=== PATIENT | male | born 1950 | race Caucasian/White ===

== ENCOUNTER → 2016-12-24 | Outpatient (CLI) | payer MEDICARE, BC ==
--- NOTE | 2016-12-24 12:55 | EST ---
DATE OF SERVICE: 12/24/2016 AGE: 66Y SEX: M HT: 71" WT: 260 lbs. Protocol Steven: X Other: Cardiolite Stress Stage: 2 Dur. of Exercise: 6:55 *Heart Rate Blood Pressure *Rest: 73 Rest: 139/90 * *Max. Achieved: 144 Maximum BP: 200/102 85% PMHR: 132 100% PMHR: 155 *METS: 6.5 INDICATIONS: Coronary artery disease. MEDICATIONS: Atorvastatin, valsartan, atenolol, amlodipine. Baseline EKG revealed normal sinus rhythm without significant ST-T changes. Patient walked for 6 minutes 55 seconds, achieved a maximum heart rate of 144 beats, which is more than 85% of predicted maximum. He developed fatigue and shortness of breath, but did not have any anginal symptoms. EKG did not reveal any new ST segment changes to indicate ischemia. The patient; however, became quite short of breath with exercise but did not have any angina. By EKG criteria, this is a negative stress test with fair exercise capacity. The nuclear scan results, which are more pertinent, will be reported by the radiologist.
--- NOTE | 2016-12-24 14:13 | NM ---
EXAMINATION TYPE: NM stress cardiolite complete DATE OF EXAM: 12/24/2016 1:02 PM COMPARISON: Previous exam 31 Dec 2010 HISTORY: Coronary artery disease TECHNIQUE: After the intravenous administration of 10.9 mCi Tc 99m Sestamibi - Rest images obtained 45 minutes post injection. The patient exercised using a ASHLEY protocol and 1 minute prior to peak exercise was injected with 27.2 mCi Tc 99m Sestamibi - Stress images obtained 5 minutes post injectio n. FINDINGS: Targeted heart rate was achieved during performance of the study. Review of stress and rest SPECT isrrael ges demonstrates no distinct perfusion abnormality. Gated analysis shows normal wall motion with an estimated left ventricular ejection fraction of 49 %. IMPRESSION: No scintigraphic evidence for reversible ischemia
== END | disposition home or self-care (01) ==
LOC: RADNMMAIN 10:19
PROVIDERS: ATTEND Family Medicine
DX: I25.10 Atherosclerotic heart disease of native coronary artery without angina pectoris (principal)
CPT/HCPCS: 93017; 78452; A9500

== ENCOUNTER → 2019-06-25 | Outpatient (CLI) | payer MEDICARE, BC | END | disposition home or self-care (01) | LOC: CPPFTMAIN 06:52 | PROVIDERS: ATTEND Internal Medicine Critical Care Medicine | DX: J44.9 Chronic obstructive pulmonary disease, unspecified (principal); J84.89 Other specified interstitial pulmonary diseases; J98.4 Other disorders of lung | CPT/HCPCS: 94060; 94726; 94729 ==

== ENCOUNTER → 2019-07-13 | Outpatient (CLI) | payer MEDICARE, BC ==
--- NOTE | 2019-07-14 04:25 | CT ---
EXAMINATION TYPE: CT chest w con DATE OF EXAM: 07/13/2019 COMPARISON: Correlation radiograph 06/29/2019 HISTORY: 69 year-old male shortness of breath, Dyspnea on exertion TECHNIQUE: Contiguous axial scanning of the chest after the administration of 100 mL of Isovue 300. Coronal/sagittal reconstructions performed. CT DLP: 755.4mGycm. Automatic exposure control utilized for a dose reduction. FINDINGS: Heart normal size without pericardial effusion. Three-vessel coronary artery calcifications are prese nt. Ascending aorta mildly aneurysmal at 4.1 cm. Conventional and vessel branching anatomy. No thoracic lymphadenopathy. There is volume loss at the left base with atelectasis. No consolidation or pleural effusion. There is a large hiatal hernia containing nearly the entire stomach within the lower left thorax amol g with prominent mesenteric fat. The hernia itself measures up to 18.0 cm wide by 12.8 cm craniocauda l by 17.2 cm AP dimension (refer to coronal image 67 and axial image 42. Low-attenuation of the liver compatible with fatty infiltration. 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 IMPRESSION: 1. Large hiatal hernia containing nearly the entire stomach and abundant mesenteric fat within the lo wer left thorax. The hernia sac measures up to 18.0 x 12.8 x 17.2 cm. 2. Associated volume loss and atelectasis at the left base. No acute pulmonary process. 3. Mild aneurysm ascending aorta (4.1 cm), CAD, and hepatic steatosis
== END | disposition home or self-care (01) ==
LOC: RADCTMAIN 15:18
PROVIDERS: ATTEND Internal Medicine Critical Care Medicine
DX: J98.11 Atelectasis (principal); I25.10 Atherosclerotic heart disease of native coronary artery without angina pectoris; K44.9 Diaphragmatic hernia without obstruction or gangrene; I71.2 Thoracic aortic aneurysm, without rupture
CPT/HCPCS: 82565; 84520; 71260; 36415; Q9967

== ENCOUNTER 2021-07-08 13:25 | Emergency (ER) | payer MEDICARE, BC ==
[2021-07-08 13:54] VITALS: TEMP 98.1
--- NOTE | 2021-07-08 16:30 | ED ---
General Adult HPI - General Chief complaint: Upper Respiratory Infection Stated complaint: Covid+/Wants antibodies Time Seen by Provider: 07/08/21 16:20 Source: patient, RN notes reviewed, old records reviewed Mode of arrival: ambulatory Limitations: no limitations - History of Present Illness Initial comments: This is a well-appearing 71-year-old male, alert and oriented 4, presents to the emergency room ambulatory with complaints of testing positive for coronavirus today. He states that he was exposed to a positive family member. He states that his symptoms started on Friday with nasal congestion. He is here for monoclonal antibodies infusion. He has not been vaccinated. His does have a history of hypertension, denies any other medical history. 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 He was evaluated for this by his physician and spent 3 days in the hospital to confirm the diagnosis. -: days(s) (3) Location: head (Nasal congestion) Severity scale (1-10): 0 Consistency: constant Improves with: none Worsens with: none Associated Symptoms: denies other symptoms Treatments Prior to Arrival: none - Related Data Home Medications Medication Instructions Recorded Confirmed Atorvastatin Calcium [Lipitor] 20 mg PO HS 07/08/21 07/08/21 Cholecalciferol [Vitamin D3 (25 50 mcg PO DAILY 07/08/21 07/08/21 Mcg = 1000 Iu)] Losartan Potassium [Cozaar] 100 mg PO DAILY 07/08/21 07/08/21 amLODIPine [Norvasc] 10 mg PO DAILY 07/08/21 07/08/21 Allergies Allergy/AdvReac Type Severity Reaction Status Date / Time No Known Allergies Allergy Verified 07/08/21 17:07 Review of Systems ROS Statement: Those systems with pertinent positive or pertinent negative responses have been documented in the HPI. ROS Other: All systems not noted in ROS Statement are negative. Past Medical History Past Medical History: Hypertension History of Any Multi-Drug Resistant Organisms: None Reported Past Surgical History: No Surgical Hx Reported Past Psychological History: No Psychological Hx Reported Smoking Status: Never smoker Past Alcohol Use History: None Reported Past Drug Use History: None Reported General Exam Limitations: no limitations General appearance: alert, in no apparent distress Head exam: Present: atraumatic, normocephalic, other (Right-sided facial droop) Expanded Head exam: Present: other (Right-sided facial droop from Cantu's palsy) Eye exam: Present: EOMI. Absent: scleral icterus, conjunctival injection, periorbital swelling, periorbital tenderness ENT exam: Present: normal oropharynx, mucous membranes moist Neck exam: Present: normal inspection, full ROM. Absent: tenderness, meningismus, lymphadenopathy, thyromegaly Respiratory exam: Present: normal lung sounds bilaterally. Absent: respiratory distress, wheezes, rales, rhonchi, stridor Cardiovascular Exam: Present: regular rate, normal rhythm, normal heart sounds. Absent: systolic murmur, diastolic murmur, rubs, gallop, clicks Back exam: Present: normal inspection, full ROM. Absent: tenderness, CVA tenderness (R), CVA tenderness (L), rash noted Neurological exam: Present: alert, oriented X3, normal gait Psychiatric exam: Present: normal affect, normal mood Skin exam: Present: warm, dry, intact, normal color. Absent: rash, cyanosis, diaphoretic, petechiae, pallor Course Vital Signs 07/08/21 07/08/21 07/08/21 13:51 16:50 17:22 Temperature 98.1 F Pulse Rate 80 80 84 Respiratory 16 17 18 Rate Blood Pressure 131/91 164/91 123/89 O2 Sat by Pulse 95 96 96 Oximetry 07/08/21 07/08/21 17:50 18:37 Temperature Pulse Rate 81 63 Respiratory 18 18 Rate Blood Pressure 141/91 132/85 O2 Sat by Pulse 96 98 Oximetry Medical Decision Making - Medical Decision Making Patient presents to the emergency room requesting a monoclonal antibody infusion. He had a positive Covid home test. He has not been vaccinated. He does have a history of hypertension. He is well-appearing , oxygenation at 95% on room air. He denies any discomfort at this time. He tolerated the monoclonal antibody infusion well. He'll be directed to follow up with his primary care doctor next week return to the emergency room with any new or worsening symptoms. Disposition Clinical Impression: COVID-19 Disposition: HOME SELF-CARE Condition: Good Instructions (If sedation given, give patient instructions): Coronavirus Disease 2019 (COVID-19) Additional Instructions: You can take Tylenol or Motrin as needed for body aches or fevers. You can also take vitamin C, vitamin D and Zinc to improve your immune health. Follow-up with your primary care doctor next week. Return to emergency room if any new or worsening symptoms. Is patient prescribed a controlled substance at d/c from ED?: No Referrals: Holger Cuadra MD [Primary Care Provider] - 1-2 days Time of Disposition: 18:35
[2021-07-08] MEDS ORDERED: BAMLANIVIMAB (EUA) 700 MG, ETESEVIMAB (EUA) 1,400 MG in SODIUM CHLORIDE 0.9% 50 ML IVPB ONE (17:00)
[2021-07-08 17:24] VITALS: RESP 18
[2021-07-08] MEDS ORDERED: SODIUM CHLORIDE 0.9% 50 ML IVPB ONE (17:30)
[2021-07-08 18:38] VITALS: BP 132/85; PULSE 63
== END 2021-07-08 18:38 | disposition home or self-care (01) ==
LOC: EC 13:25
DX: U07.1 COVID-19 (principal); I10 Essential (primary) hypertension; Z79.899 Other long term (current) drug therapy
CPT/HCPCS: 99283; 96365; J3490